=== PATIENT | female | born 1995 | race Caucasian/White ===

== ENCOUNTER 2019-03-17 13:37 | Emergency (ER) | payer MEDICAID ==
[~2019-03-17] VITALS: Ht 152.4 cm; Wt 81.2 kg
[2019-03-17 13:46] VITALS: BP 111/69; Ht 152.4 cm; Wt 81.2 kg
[2019-03-17 14:31] LABS: microscopic required? YES; urine erythrocyte 3+ (NEGATIVE)
[2019-03-17 14:39] LABS: BASOPHIL % 0.3 % (0-2); PLATELET COUNT 203 x10^3mcL (130-400); RED CELL DISTRIBUTION WIDTH 13.3 % (11.5-14.5)
== END 2019-03-17 16:26 | disposition home or self-care (01) ==
LOC: ED 13:37
PROVIDERS: Emergency Medicine
DX: O20.0 Threatened abortion (principal); Z3A.01 Less than 8 weeks gestation of pregnancy
CPT/HCPCS: 36415

== ENCOUNTER 2019-03-19 02:06 | Emergency (ER) | payer MEDICAID ==
[~2019-03-19] VITALS: Ht 152.4 cm; Wt 82.6 kg
[2019-03-19 02:11] VITALS: Ht 152.4 cm; Wt 82.6 kg
[2019-03-19 02:37] LABS: BASOPHIL % 0.5 % (0-2); PLATELET COUNT 208 x10^3mcL (130-400); RED CELL DISTRIBUTION WIDTH 13.5 % (11.5-14.5)
[2019-03-19 02:49] LABS: UA SPECIFIC GRAVITY 1.025 (1.005-1.035); microscopic required? YES; urine erythrocyte 3+ (NEGATIVE)
[2019-03-19 04:02] VITALS: BP 110/77
== END 2019-03-19 04:02 | disposition home or self-care (01) ==
LOC: ED 02:06
PROVIDERS: Emergency Medicine
DX: O03.9 Complete or unspecified spontaneous abortion without complication (principal)
CPT/HCPCS: 36415